=== PATIENT | male | born 1960 ===

== ENCOUNTER 2019-10-13 00:25 | Emergency (ER) | payer SELFPAY ==
[2019-10-13 00:23] VITALS: BP 133/97; PULSE 65; TEMP 36.7; O2SAT 97
--- NOTE | 2019-10-13 00:26 | ED.GENADUL_ITS ---
Discharge Plan Disposition Patient Disposition: HOME Condition: Stable Discharge Details Chief Complaint: ETOHWithdr Clinical Impression: Alcohol intoxication ED Provider: Jarrod Mitchell Home Meds and New Rx's Prescriptions: No Action No Known Home Meds RF: 0 Discharge Instructions Instructions: Alcohol Intoxication (ED) Medical Decision Making 59 yo male comes in with ems with alcohol intoxication. He states he has been drinking beer all night like he always does and has no complaints. He denies headache, fevers, chills, vomit, rashes. He is not sure why he was brought here he states he wanted to stay at his hotel in [place] he is staying at but was forced to come here. He has no focal deficits on exam with clear speech and steady gait. He is clinically sober at this time and has capacity to make his own decisions. HE has no ride home and would like d/c and will walk home. I did consult with mental health to try and get him to a care bed so he wouldn't have to walk home but he declined this unfortunately Differential Diagnosis Differential Diagnosis: alcohol intoxication, alcohol abuse HPI General Mode of arrival: EMS . Date/Time Provider Initiated Documentation: 10/13/19 00:26 . Limitations to Documentation: other (alcohol intoxication) . Information obtained by: patient and EMS . History of Present Illness 59 year old M presents to the emergency department with the chief complaint of alcohol intoxication, described as moderate, Patient started experiencing this day(s) (1) and it has been constant. No relieving factors improve symptom(s), No exacerbating factors reported . Patient did receive the following treatments prior to arrival, none Related Data Home Medications Medication Instructions Recorded Confirmed Unknown [No Known Home Meds] 10/13/19 10/13/19 Allergies Allergy/AdvReac Type Severity Reaction Status Date / Time No Known Allergies Allergy Unverified 10/13/19 00:32 Review of Systems All systems reviewed & are unremarkable except as noted in HPI and below Constitutional Constitutional: Denies chills, Denies fever(s) and Denies weakness Cardiovascular Cardiovascular: Denies chest pain and Denies dyspnea Respiratory Respiratory: Denies cough and Denies dyspnea Gastrointestinal Gastrointestinal: Denies abdominal pain, Denies nausea and Denies vomiting Musculoskeletal Musculoskeletal: Denies joint swelling Neurologic Neurologic: Denies weakness Psychiatric Psychiatric: Denies depression [facility] Social History Smoking/Tobacco Use Status: Current every day Tobacco Type: cigarettes Alcohol Intake: current Alcohol Intake frequency: 3 or more drinks per day Drug use: Daily Substance use type: marijuana Do you feel safe at home: No Exam Const General: no acute distress Orientation: alert HENMT Head: normal to inspection Ears: external ears normal General nose exam: external nose normal Mouth: moist mucous membranes Eyes General: appearance normal, both eyes and all related structures Neck Neck: normal visual inspection Resp Effort & Inspection: normal respiratory effort and able to speak in complete sentences Cardio Rate: regular rate Skin General skin exam: no rashes or lesions noted Neuro General: patient alert and patient oriented x3 Extrem General: normal to inspection Psych Mental Status: mental status grossly normal
--- NOTE | 2019-10-13 01:30 | NUR.NOTE ---
Patient medically cleared by Dr. Mitchell. Patient unable to find a ride back to his home in [place]. Patient stated he would walk.
== END 2019-10-13 01:25 | disposition home or self-care (01) ==
LOC: ER 04:04
PROVIDERS: Emergency Provider Emergency Medicine
DX: F10.120 Alcohol abuse with intoxication, uncomplicated (principal)
CPT/HCPCS: 99283; 99281